=== PATIENT | male | born 1970 | race Caucasian/White ===

== ENCOUNTER → 2020-08-07 | Outpatient (CLI) | payer OTHER | LOC: CAT 08:37 | PROVIDERS: ATTEND Nurse Practitioner | DX: I26.99 Other pulmonary embolism without acute cor pulmonale (principal) ==

== ENCOUNTER → 2020-08-14 | Outpatient (CLI) | payer OTHER | LOC: CAT 13:16 | PROVIDERS: ATTEND Nurse Practitioner | DX: R91.1 Solitary pulmonary nodule (principal); M47.815 Spondylosis without myelopathy or radiculopathy, thoracolumbar region; I26.99 Other pulmonary embolism without acute cor pulmonale ==

== ENCOUNTER → 2020-12-20 | Outpatient (CLI) | payer BC, OTHER | LOC: CAT 09:07 | PROVIDERS: ATTEND Internal Medicine | DX: R91.1 Solitary pulmonary nodule (principal) ==

== ENCOUNTER → 2021-01-07 | Outpatient (CLI) | payer BC, OTHER ==
--- NOTE | 2021-01-07 09:49 | 2DMMODE ---
[facility] [place] [address] 2 D/M-MODE ECHOCARDIOGRAM Name: JAMEY RIZZO Room #: REG [facility].#: [id number] Admission: 01/07/21 Attend Phys: Frank Mathews MD Discharge: Date of : 68 Report #: [id number] THIS REPORT FOR: cc: Isak Gallego,Lionel Turpin MD ~ APPROVED REPORT Study performed: 01/07/2021 08:29:24 EXAM: Comprehensive 2D, Doppler, and color-flow Echocardiogram Patient Location: Out-Patient Status: routine BSA: 2.09 HR: 68 bpm BP: 120/70 mmHg Rhythm: NSR Other Information Study Quality: Good Indications History of PE 06/2020. 2D Dimensions RVDd: 40.41 mm IVSd: 9.51 (7-11mm) LVOT Diam: 22.18 (18-24mm) LVDd: 46.42 mm PWd: 10.06 (7-11mm) LVDs: 30.06 (25-40mm) Left Atrium: 36.26 (27-40mm) Aortic Root: 38.04 mm Volumes Left Atrial Volume (Systole) Single Plane 4CH: 39.94 mL Single Plane 2CH: 54.01 mL LA ESV Index: 24.00 mL/m2 Aortic Valve AoV Peak Martin.: 1.45 m/s AO Peak Gr.: 8.38 mmHg LVOT Max P.53 mmHg LVOT Max V: 1.18 m/s STORMY Vmax: 3.14 cm2 [facility] [address] [place] [address] 2 D/M-MODE ECHOCARDIOGRAM Name: SOJAMEY RUCKER Room #: REG [facility]#: [id number] Admission: 01/07/21 Attend Phys: Frank Mathews, Discharge: Date of : 68 Report #: [id number] Mitral Valve E/A Ratio: 1.5 MV Decel. Time: 185.50 ms MV E Max Martin.: 0.74 m/s MV A Martin.: 0.51 m/s MV PHT: 53.80 ms IVRT: 65.74 ms Pulmonary Valve PV Peak Martin.: 0.89 m/s PV Peak Gr.: 3.15 mmHg Pulmonary Vein P Vein S: 0.59 m/s P Vein A: 0.31 m/s P Vein D: 0.52 m/s P Vein S/D Ratio: 1.13 Tricuspid Valve TR Peak Martin.: 1.78 m/s RAP Estimate: 5.00 mmHg TR Peak Gr.: 13.00 mmHg PA Pressure: 18.00 mmHg Left Ventricle The left ventricle is normal size. There is normal LV segmental wall motion. There is normal left ventricular wall thickness. Left ventricular systolic function is normal. LVEF is 60-65%. Right Ventricle The right ventricle is normal size. The right ventricular systolic function is normal. Atria The left atrium size is normal. The right atrium size is normal. Aortic Valve The aortic valve is normal in structure. No aortic regurgitation is present. There is no aortic valvular stenosis. Mitral Valve The mitral valve is normal in structure. Trace mitral regurgitation. No evidence of mitral valve stenosis. Tricuspid Valve The tricuspid valve is normal in structure. Trace tricuspid regurgitation. Estimated PAP is 17mmHg. [facility] [place] [address] 2 D/M-MODE ECHOCARDIOGRAM Name: SOJAMEY Room #: REG [facility] Zuñiga#: [id number] Admission: 01/07/21 Attend Phys: Frank Mathews, Discharge: Date of : 68 Report #: [id number] Pulmonic Valve The pulmonary valve is normal in structure. There is no pulmonic valvular regurgitation. Great Vessels The aortic root is normal in size. Ascending aorta is not well visualized. IVC is normal in size and collapses >50% with inspiration. Pericardium There is no pericardial effusion. <Conclusion> The left ventricle is normal size. There is normal left ventricular wall thickness. Left ventricular systolic function is normal. The right ventricle is normal size. The left atrium size is normal. The aortic valve is normal in structure. Trace mitral regurgitation. Trace tricuspid regurgitation. <ELECTRONICALLY SIGNED> By: Lionel Wallis MD 01/07/2148 7 7 Lionel Wallis MD /INF
== END ==
LOC: CV 01-06 14:12
PROVIDERS: ATTEND Internal Medicine
DX: R55 Syncope and collapse (principal); Z86.711 Personal history of pulmonary embolism

== ENCOUNTER → 2021-05-05 | Outpatient (CLI) | payer OTHER | LOC: CAT 09:10 | PROVIDERS: ATTEND Neuromusculoskeletal Medicine & OMM | DX: Z13.6 Encounter for screening for cardiovascular disorders (principal); I25.10 Atherosclerotic heart disease of native coronary artery without angina pectoris; E78.00 Pure hypercholesterolemia, unspecified ==